=== PATIENT | male | born 1995 | race Two or more races ===

== ENCOUNTER 2021-07-07 13:22 | Emergency (ER) | payer OTHER ==
[2021-07-07] MEDS ORDERED: Lidocaine 1% 10 ML MDV INJECT ONE (13:41)
--- NOTE | 2021-07-07 14:33 | EDM.PDOC ---
ED HPI GENERAL MEDICAL PROBLEM - General Chief Complaint: Laceration Stated Complaint: HAND LAC Time Seen by Provider: 07/07/21 13:24 Source of Information: Reports: Patient, RN Notes Reviewed History Limitations: Reports: No Limitations - History of Present Illness INITIAL COMMENTS - FREE TEXT/NARRATIVE: Patient is a 26-year-old male presenting to the emergency department with complaints of laceration to his left palm. Reports he was cutting watermelon and cut too deep. He is up-to-date on his tetanus vaccination. He denies any numbness or tingling of the hand. He has full use of the hand. Left Hand Pain Score (Numeric/FACES): 5 - Related Data Allergies Allergy/AdvReac Type Severity Reaction Status Date / Time No Known Allergies Allergy Verified 07/07/21 13:31 Home Meds: Home Meds . [No Known Home Meds] 07/07/21 [History] Past Medical History - Past Health History Medical/Surgical History: Denies Medical/Surgical History Social & Family History - Tobacco Use Tobacco Use Status *Q: Never Tobacco User Second Hand Smoke Exposure: No - Recreational Drug Use Recreational Drug Use: No ED ROS GENERAL - Review of Systems Review Of Systems: Comprehensive ROS is negative, except as noted in HPI. ED EXAM, SKIN/RASH Exam: See Below Exam Limited By: No Limitations General Appearance: Alert, WD/WN, No Apparent Distress Respiratory/Chest: No Respiratory Distress, Lungs Clear, Normal Breath Sounds, No Accessory Muscle Use, Chest Non-Tender Cardiovascular: Normal Peripheral Pulses, Regular Rate, Rhythm, No Edema, No Gallop, No JVD, No Murmur, No Rub Neurological: Alert, Oriented, CN II-XII Intact, Normal Cognition, Normal Gait, Normal Reflexes, No Motor/Sensory Deficits Psychiatric: Normal Affect, Normal Mood Skin: Other (4 cm superficial laceration to the medial aspect of the left palm. No active bleeding.) ED SKIN PROCEDURES - Laceration/Wound Repair Left Medial Ventral Hand Appearance: Superficial Distal NVT: Neuro & Vascular Intact, No Tendon Injury Anesthetic Type: Local Local Anesthesia - Lidocaine (Xylocaine): 1% Plain Local Anesthetic Volume: 2cc Skin Prep: Chlorhexidine (Hibiciens), Saline, Sterile Drape Exploration/Debridement/Repair: Wound Explored, No Foreign Material Found Closed with: Sutures Lac/Wound length In cm: 4 Suture Size: 4-0 # of Sutures: 6 Suture Type: Nylon Sterile Dressing Applied: Provider Tetanus Status Addressed: Yes Complications: No Course - Vital Signs Last Recorded V/S: Last Vital Signs Temp 97.8 F 07/07/21 13:29 Pulse 80 07/07/21 13:29 Resp 16 07/07/21 13:29 BP 125/72 07/07/21 13:29 Pulse Ox 100 07/07/21 13:29 - Orders/Labs/Meds Meds: Medications Discontinued Medications Generic Name Dose Route Start Last Admin Trade Name Maria Teresa PRN Reason Stop Dose Admin Lidocaine HCl 10 ml 07/07/21 13:41 Lidocaine 1% 10 Ml Mdv INJECT 07/07/21 13:42 ONETIME ONE Departure - Departure Time of Disposition: 14:32 Disposition: Home, Self-Care 01 Condition: Good Clinical Impression: Laceration - Discharge Information *PRESCRIPTION DRUG MONITORING PROGRAM REVIEWED*: No *COPY OF PRESCRIPTION DRUG MONITORING REPORT IN PATIENT GLORY: No Instructions: Laceration Care, Adult Referrals: PCP,None [Primary Care Provider] - Additional Instructions: You were seen in the emergency department today for a laceration to your left hand. The wound was cleansed and closed with 6 sutures. These should stay intact for 7 days. After that time they may be removed in the clinic by a nurse. You may call [phone] to set up a nurse visit. Keep the wound clean and dry. Wash with normal soap and water twice daily. Do not submerge the wound in water. Watch for signs of infection including increased redness, swelling, or purulent drainage. If these should occur, you should be seen either in the clinic or in the emergency department as antibiotic treatment may be needed. Return to the ER as needed. Sepsis Event Note (ED) - Evaluation Sepsis Screening Result: No Definite Risk - Focused Exam Vital Signs: Vital Signs Temp Pulse Resp BP Pulse Ox 07/07/21 13:29 97.8 F 80 16 125/72 100
== END 2021-07-07 14:40 | disposition home or self-care (01) ==
LOC: JD.ED 13:22
DX: S61.412A Laceration without foreign body of left hand, initial encounter (principal); W26.8XXA Contact with other sharp object(s), not elsewhere classified, initial encounter
CPT/HCPCS: 12002; 99282-25

== ENCOUNTER 2023-05-25 01:00 | Emergency (ER) | payer OTHER ==
[2023-05-25 01:51] LABS: BASOPHILS ABSOLUTE AUTO 0.02 K/mm3 (0.01-0.08); BASOPHILS PERCENT AUTO 0.1 % (0.1-1.2); EOSINOPHILS ABSOLUTE AUTO 0.05 K/mm3 (0.04-0.54); EOSINOPHILS PERCENT AUTO 0.3 (0.8-7.0); HEMATOCRIT 45.1 % (40.1-51.0); HEMOGLOBIN 16.1 gm/dl (13.7-17.5); IMMATURE GRAN ABSOLUTE AUTO 0.05 K/mm3 (0.00-0.10); IMMATURE GRAN PERCENT AUTO 0.3 % (<=1.0); LYMPHOCYTES ABSOLUTE AUTO 2.22 K/mm3 (1.32-3.57); LYMPHOCYTES PERCENT AUTO 14.5 % (21.8-53.1); MEAN CORPUSCULAR HGB CONC 35.7 g/dl (32.2-35.5); MEAN CORPUSCULAR VOLUME 95.3 fl (79.0-92.2); MONOCYTES ABSOLUTE AUTO 1.04 K/mm3 (0.30-0.82); MONOCYTES PERCENT AUTO 6.8 % (5.3-12.2); PLATELET COUNT,PLT 345 K/mm3 (163-337); RED BLOOD CELL COUNT 4.73 M/mm3 (4.63-6.08); WHITE BLOOD CELL COUNT,WBC 15.28 K/mm3 (4.23-9.07)
[2023-05-25 02:13] LABS: A/G RATIO 1.2 (1-2); ALBUMIN 4.4 g/dl (3.4-5.0); ANION GAP 13.7 (5-15); BILIRUBIN TOTAL 0.8 mg/dL (0.2-1.0); EST CRCL DRUG DOSING (CG) 96.52 mL/min; POTASSIUM,K 3.7 mEq/L (3.5-5.1); PROTEIN TOTAL,TP 8.1 g/dl (6.4-8.2)
[2023-05-25] MEDS ORDERED: Ondansetron 8 MG in Sodium Chloride 0.9% 50 ML IV ONE (02:54)
[2023-05-25] MEDS ORDERED: Ondansetron 4 MG Tab.DIS PO ONE (03:07)
== END 2023-05-25 04:33 | disposition home or self-care (01) ==
LOC: JD.ED 01:00
DX: Z77.098 Contact with and (suspected) exposure to other hazardous, chiefly nonmedicinal, chemicals (principal)
CPT/HCPCS: 36415; 80053; 83605; 85025; 93005; 99284; A9270